=== PATIENT | male | born 1940 | race Caucasian/White ===

== ENCOUNTER → 2024-04-29 | Outpatient (CLI) | payer MEDICARE, OTHER, SELFPAY ==
--- NOTE | 2024-04-29 07:30 | XR_ITS ---
Examination: MRI brain without intravenous contrast. Date and time of exam: April 29, 2024 0758 hours INDICATIONS: Increasing memory loss and confusion over the last 15 years Technique: Multiple axial and sagittal images of the brain obtained. Siemens high-resolution 1.5 Lucy short bore scanners utilized. Sagittal sections, T1-weighted, TR 500, TE 14, are performed. Axial sections proton-density and T2-weighted have been obtained. Inversion recovery axial images, TR 9, 260, TE 111, TI 2500. Diffusion weighted images, axial sections, TR 4800, TE 128, B value 1000 Axial sections, ADC map, TR 4800, TE 128 Findings: Enlargement of the sella turcica is not present. The optic chiasm and infundibular are not remarkable. Prepontine and interpeduncular cisterns are not enlarged. There is no localized enlargement of the medulla or jack. Fourth ventricle and cerebellar tonsils appear normal in position. No subacute area of hemorrhage density is seen. Mass in the cerebellopontine angle region is not evident. Globes symmetrical. Orbital musculature including medial lateral rectus muscles do not exhibit abnormality. Diffusion-weighted images demonstrate no focus of restricted diffusion. Increased white matter signal mild Mass effect upon the ventricular system is not identified. Impression: Negative for acute hemorrhage mass effect or midline shift No acute infarct Mild chronic microvascular white matter change
== END | disposition home or self-care (01) ==
PROVIDERS: Referring Provider Family Medicine; Visit Provider Family Medicine
DX: R90.82 White matter disease, unspecified (principal)
CPT/HCPCS: 70551

== ENCOUNTER 2024-12-26 18:42 | Emergency (ER) | payer MEDICARE, OTHER, SELFPAY ==
[2024-12-26 19:45] VITALS: BP 137/69; PULSE 76; RESP 20; TEMP 37.3; O2SAT 95; BMI 29.5
--- NOTE | 2024-12-26 20:29 | PD.EDWOUND ---
ED Wound/Laceration-RME/HPI General Chief Complaint: Wound/Laceration Stated Complaint: BLEEDING BETWEEN THIGH AND RECTUM Time Seen by Provider: 12/26/24 19:54 Arrival date/time: 12/26/24 18:42 RME / HPI RME / HPI narrative: 84-year-old male presents to the ED with complaint of a sore in the fold between his left thigh and perineum that has been present for at least 1 month. He was seen by his primary care physician last Saturday and did not mention this issue at that time. He indicates that it will fill up with blood and then drain every 3 or so days after he wipes during a bowel movement. He denies any fever or chills, nausea or vomiting, diarrhea or abdominal pain. He denies any significant change in his blood sugars. He denies any difficulty with bowel movements. Related Data Home Medications ?Medication ?Instructions ?Recorded ?Confirmed metoprolol succinate 50 mg 50 mg PO QDAY High Blood Pressure 11/30/14 03/16/21 tablet,extended release 24 hr ##0 (Toprol XL) zolpidem 10 mg tablet (Ambien) 10 mg PO HS PRN INSOMNIA #0 tabs 11/30/14 03/16/21 amitriptyline 100 mg tablet 100 mg PO HS 07/14/20 03/16/21 ibandronate 150 mg tablet 150 mg PO QMONTH 07/14/20 03/16/21 lisinopril 20 mg tablet 20 mg PO QDAY 07/14/20 03/16/21 hydrocodone 10 mg-acetaminophen 1 tab PO TID 03/16/21 03/16/21 325 mg tablet metformin 1,000 mg tablet 1,000 mg PO BID 03/16/21 03/16/21 Previous Rx's ?Medication ?Instructions ?Recorded cephalexin 500 mg capsule 500 mg PO QID #28 caps 03/25/22 cephalexin 250 mg capsule 250 mg PO QID 7 days #28 caps 12/26/24 Allergies Allergy/AdvReac Type Severity Reaction Status Date / Time Penicillins Allergy Mild ITCH Verified 12/26/24 18:47 Review of Systems Review of Systems Systems Reviewed: All systems reviewed, normal except as documented Past Medical History Past Medical History NEUROLOGIC: Positive Head Trauma; Negative Transient Ischemic Attacks (TIA), Dementia, Alzheimer's Disease, Seizures or Migraine CARDIAC: Positive Hypercholesterolemia and Hypertension; Negative Cardiac Disorders or Congestive Heart Failure RESPIRATORY: Positive Pneumonia; Negative Chronic Obstructive Pulmonary Disease (COPD), Asthma or Sleep Apnea GASTROINTESTINAL: Negative Gastrointestinal Disorders or Hemorrhoids GENITOURINARY: Negative Genitourinary Disorders or Renal Disease MUSCULOSKELETAL: Positive Musculoskeletal Disorders and Gout ENT: Positive Cataracts, Deafness and Head Trauma ENDOCRINE: Positive Diabetes Mellitus Type 2; Negative Diabetes Mellitus Type 1 HEMATOLOGIC: Negative Blood Disorders, Anemia or Sickle Cell Disease OTHER HISTORY: Positive Falls, Chicken Pox, Measles and Mumps; Negative Blood Transfusions, Blood Transfusion Reaction, Anesthesia Reactions, MRSA or Cancer Family History FAMILY HISTORY: Positive Family Cardiac Disorders, Family Cancer and Family Surgery; Negative Family Psychiatric Problems or Family Respiratory Disorders Surgical History SURGICAL: Positive Cardiac Surgery, Angiogram and Abdominal Surgery; Negative Ear Surgery, Eye Surgery, Neurologic Surgery, Brain Shunt or Mastectomy Social History SMOKING STATUS: Never smoker SECOND HAND EXPOSURE: No ED Exam Narrative Physical exam: A&O, afebrile and non-toxic appearing 84-year-old male, no acute distress. Lung sounds are clear, RRR with aortic stenosis type murmur noted in all coppola with radiation to his bilateral carotids., Abdomen is non-distended. With outlet manager present, the patient's perineum and upper thigh were examined and reveals a 2 to 3 mm open wound with no purulent drainage. Bloody discharge is noted. No area of induration or fluctuance. No significant tenderness noted to the area. Moves all extremities well. Course Course Course Narrative: Patient was given his first dose of antibiotics while here in the ED. Quality Measures none Orders Category Date Time Status cephALEXin [Keflex] Med 12/26/24 20:28 Once 500 mg PO X1 ONE Vital Signs Vital signs: Vital Signs Temperature 99.1 F 12/26/24 19:45 Pulse Rate 76 12/26/24 19:45 Respiratory Rate 20 12/26/24 19:45 Blood Pressure 137/69 H 12/26/24 19:45 Pulse Oximetry (%) 95 12/26/24 19:45 Oxygen Delivery Method Room Air 12/26/24 19:45 Wound / Laceration MDM Narrative MDM Narrative:: Symptoms, exam and diagnostic studies are consistent with: Possible healing abscess/open and draining wound between the perineum and left proximal thigh. Patient was discharged home in stable condition. Patient/family advised to follow-up with their PCP in 24-48 hours. Encouraged to return to the ED for any new or worsening symptoms. Patient data External records reviewed:: None Clinical information provided by:: patient and spouse Social determinants that could affect healthcare access:: none Patient has the following chronic illnesses:: DM How is presenting disease/condition affected by chronic disease/condition?: uneffected by Evaluation data The following diagnostics were reviewed and interpreted by me:: other (specify) (None) Lab and/or radiology exams considered but not ordered:: N/A Interpretation Summary: N/A Medications / Prescriptions Medications or Prescriptions considered but not ordered:: N/A Medication administrations:: Cephalexin 500 mg p.o. Consultations Consultation(s) initiated? (list below): No Diagnosis Wound Differential Diagnosis: laceration, abscess and abrasion Most likely diagnosis given after review of the tests above:: Healing abscess Admission Indicated Admission indicated?: not indicated Admission Request Was there a request for admission?: No Disposition Plan Disposition Plan: Discharge Discharge Attestation Discharge Attestation: The patient and all family members were given an opportunity to ask questions and understood the discharge instructions. Discharge instructions specifically effects, indications for sooner follow up or return to the emergency department, and the expected course of current diagnosis. Patient condition: Stable Discharge Plan Plan Patient Disposition: HOME (Self Care) Discharge Disposition comment: Stable Prescriptions/Referrals Prescriptions/Med Rec: New cephalexin 250 mg capsule 250 mg PO QID 7 Days Qty: 28 0RF No Action metoprolol succinate [Toprol XL] 50 MG tablet extended release 24 hr 50 mg PO QDAY Qty: 0 zolpidem [Ambien] 10 MG tablet 10 mg PO HS PRN (Reason: INSOMNIA) Qty: 0 lisinopril 20 mg Tablet 20 mg PO QDAY amitriptyline 100 mg Tablet 100 mg PO HS ibandronate 150 mg Tablet 150 mg PO QMONTH hydrocodone-acetaminophen 10-325 mg Tablet 1 tab PO TID metformin 1,000 mg Tablet 1,000 mg PO BID cephalexin 500 mg capsule 500 mg PO QID Qty: 28 0RF Problem List Clinical Impression: Abscess Impression comment: Healing Patient/Caregiver Discharge Instructions Education Materials: ED Abscess Antibiotic ... Additional Instructions: Take the antibiotics as prescribed and complete the course even though you may be feeling better. Wear a maxi pad or a briefs to help contain the bleeding. Avoid placing any TP in the area as this may be breaking a scab loose. Contact your primary care physician regarding the referral to the machine skiver as a murmur was noted on his exam which is suggestive of aortic stenosis. Follow-up with your primary care physician in 24 to 48 hours. Return to the ED for any new or worsening symptoms. Print Language: Azeri Stand Alone Forms: Yuly Award Info., Patient Portal Info Letter PA/NANOTECHNOLOGIST Supervising Physician PA/DAYLIN Supervising Physician: Dr. Mayes
[2024-12-26] MEDS: TRIMETHOPRIM/SULFA 160/800 DS TABLET 1 TAB PO (21:22)
== END 2024-12-26 21:28 | disposition home or self-care (01) ==
LOC: SERX 20:51
PROVIDERS: Emergency Provider Emergency Medicine; PCP Family Medicine
DX: L02.818 Cutaneous abscess of other sites (principal)
CPT/HCPCS: 99283; A9270

== ENCOUNTER 2025-04-13 11:58 | Day surgery (SDC) | payer MEDICARE, OTHER, SELFPAY ==
--- NOTE | 2025-04-12 13:10 | EKG_ITS ---
[facility] Test Date: 2025-04-12 Pat Name: OMAYRA ARROYO Department: Room: - Gender: Male Project Accountant: GAEL : 1940 Requested By: Zafar Wilkes Order Number: [id number] Reading MD: Zafar Wilkes Measurements Intervals [place] Rate: 78 P: 50 DC: 217 QRS: -41 QRSD: 93 T: 4 QT: 366 QTc: 418 Interpretive Statements SINUS RHYTHM WITH FIRST DEGREE AV BLOCK MARKED LEFT AXIS DEVIATION [QRS AXIS < -30] MINIMAL VOLTAGE CRITERIA FOR LVH, CONSIDER NORMAL VARIANT [MEETS CRITERIA IN ONE OF: R(aVL), S(V1), R(V5), R(V5/V6)+S(V1)] Compared to ECG 03/16/2021 12:22:03 First degree AV block now present Left-axis deviation now present /store/S0/[id number]/ecg/[id number].pdf
[2025-04-12 13:54] LABS: Anion Gap 9 (7-16); BUN/Creatinine Ratio 12 Ratio (12-20); Blood Urea Nitrogen 18 mg/dL (9-23); Calcium 9.3 mg/dL (8.3-10.6); Carbon Dioxide 30.5 mMol/L (20.0-31.0); Chloride 107 mMol/L (98-107); Creatinine (Component) 1.5 mg/dL (0.6-1.3); Glucose 105 mg/dL (74-106); INR 1.0 (0.9-1.3); Osmolality,Calculated 292 (275-295); Partial Thromboplastin Time 26.2 Seconds (22.0-36.0); Potassium 4.6 mMol/L (3.4-5.1); Prothrombin Time 10.9 Seconds (9.0-12.2); Sodium 146 mMol/L (136-145); eGFR 46 See Note
[2025-04-12 14:00] LABS: Basophils # (Auto) 0.0 Thou/mm3 (0.0-0.2); Basophils % (Auto) 0 % (0-2.5); Eosinophils # (Auto) 0.1 Thou/mm3 (0.0-0.5); Eosinophils % (Auto) 2 % (0-10); Hematocrit 34.4 % (41.0-53.0); Hemoglobin 11.6 g/dL (13.5-16.0); Immature Granulocytes Auto 0.03 Thou/mm3 (0.00-0.00); Lymphocytes # (Auto) 3.1 Thou/mm3 (1.0-4.8); Lymphocytes % (Auto) 43 % (10-50); Mean Corpuscular HGB Conc 33.7 g/dl (31.0-37.0); Mean Corpuscular Hemoglobin 37.9 pg (25.0-35.0); Mean Corpuscular Volume 112 fL (80-100); Monocytes # (Auto) 0.6 Thou/mm3 (0.0-0.8); Monocytes % (Auto) 9 % (0-12); Neutrophils # (Auto) 3.3 Thou/mm3 (1.8-7.7); Neutrophils % (Auto) 46 % (37-80); Nucleated Red Blood Cell # 0.00 Thou/mm3 (0.00-0.00); Nucleated Red Blood Cell % 0 /100 WBC (0); Platelet Count 110 Thou/mm3 (140-440); RDW Standard Deviation 66.7 fL (35.1-43.9); Red Blood Count 3.06 Miln/mm3 (4.50-5.90); White Blood Count 7.2 Thou/mm3 (3.8-10.6)
[2025-04-12 15:18] LABS: Path Review Blood Smear Sent to Pathologist
[2025-04-12 16:01] VITALS: BMI 27.7
[2025-04-13] VITALS (16 sets, daily range): BP systolic 128–168; BP diastolic 65–88; PULSE 66–80; RESP 12–18; TEMP 36.3–36.7; O2SAT 93–98
[2025-04-13 15:43] LABS: O2 Saturation (Cath Lab) 100 % (91-98)
--- NOTE | 2025-04-13 20:19 | PC.NURSE ---
1608 patient is awake, alert, breathing unlabored, s/p LHC and RHC, TR band present to right wrist, no bleeding or hematoma noted. gauze and tegaderm to right groin, no bleeding or hematoma noted, right groin venous sheath has been removed in clinical laboratory aides teacher [place]. Report received from Naima POTTS, patient to recover for 3 hours. 1637 patient does not want hospital food, will bring food and feed patient. 1653 2ml air removed from TR band since hemostasis time 1553. 1717 3ml air removed from TR band 1735 3ml air removed from TR band 1750 4ml air removed from TR band 1800 3ml air removed from TR band, TR band removed, bleeding/hematoma noted, manual pressure applied [address] with 10ml air, will wait 30 minutes to deflate air 1840 1ml air removed from TR band, no bleeding or hematoma noted 184 pt stated he wants to void, will disconnect patient from vital signs monitors and assist patient to ambulate to bathroom 185 pt ambulated to bathroom and voided, right wrist and right groin remain free of hematoma or bleeding. 1851 patient back in [facility], prefers to sit on side of bed, 3ml air removed from TR band 1902 3ml air removed from TR band 191 3ml air removed from TR band 191 TR band removed, no bleeding or hematoma noted, site covered with tegaderm and coban. 1950 Patient upset he still has IV and removed own IV, manual pressure applied, site covered with gauze and tegaderm. Pt demands to go home, will print discharge instructions and send patient home. no bleeding or hematoma noted to right groin or right wrist. 2004 discharge instructions given, patient and verbalize understanding of discharge instructions, will go park car in front of hospital to discharge patient. 2009 patient awake, alert, breathing unlabored, dressing to right groin and right wrist dry with no bleeding or hematoma. Patient able to tolerate food that family brought with no nausea or vomiting, able to ambulate to bathroom and void, meets discharge criteria, discharge instructions given to patient and , patient discharged home in wheelchair with all belongings.
--- NOTE | 2025-04-13 23:28 | ESOP_ITS ---
Cardiac Cath Procedure Procedure Name Date of procedure: 04/13/25 FIELD CROP GROWER: Zafar Wilkes MD PROCEDURE PERFORMED: 1. Left heart and right heart cardiac catheterization including right, left coronary angiograms and left ventriculogram - CPT 71630 2. Ultrasound-guided access of the right radial artery and right femoral vein - CPT 96867 3. Conscious sedation for 30 minutes - CPT 42536 Procedure Narrative HISTORY AND INDICATIONS: A 84 years old male known case of Aortic stenosis, HTN, DM, CKD, OA of the hips, given patient is planned to have aortic valve replacement was brought in for an elective cardiac catheterization. hence patient is a candidate for left and right coronary angiograms, scheduled for cardiac catheterization today. Discussed with patient risks, benefits and alternatives of performing left with coronary angiogram including the risks of bleeding, heart rate, stroke and with the procedure. Patient understands the risks and is willing to undergo the procedure. Consent provided for the same. H&P updated and consent was signed prior to the procedure DESCRIPTION OF PROCEDURE: The patient was brought to the cardiac catheterization lab and all asceptic precautions were followed. Patient was given 1 Mg of Versed and 50 mcg of fentanyl for moderate conscious sedation. 2 mL of lidocaine was given in the right wrist. The right radial artery was accessed via the ultrasound guidance as well as micropuncture technique. A 6 [place] glide sheath was introduced. Patient already had right antecubital vein access placed. Right antecubital vein access was cleaned appropriately and all aseptic precautions was followed and exchanged into a micropuncture catheter with the help of a micropuncture wire and then introduced and a 7 [place] sheath into the antecubital vein access with the help of a J-wire. A 7 [place] north fork catheter was used to direct catheter into the right atrium with inflated balloon. Serial measurements of right atrium, right ventricle, pulmonary artery and pulmonary capillary wedge were taken severely with normal respiration as well as at end expiration as noted below. We then used a 6 [place] TIG 4 catheter to perform the left and right coronary angiogram as well as a left ventriculogram which showed the following findings. [facility] findings: 1. Left ventricular ejection fraction was severely 20-25% without any regional wall motion abnormalities. LVEDP was normal at 37 mmHg. There was no significant transvalvular aortic gradient. 2. Right dominant circulation left main artery is a large-caliber vessel without any significant stenosis. 3. LAD is a large sized artery with a medium size diagonal and does not show any significant disease. mild 20% disease of ostial diagonal 1 4. LCx is a large sized artery with medium OM1 and small OM2 without any significant disease. 5. RCA is a large artery with nedium RPDA and RPL without any significant disease. RHC findings: Mean right atrial pressure was 5 mmHg. Right ventricular pressure was 32/4 mmHg. Pulmonary artery pressure was 30/15 mmHg with a mean of 22 mmHg. Mean pulmonary capillary wedge pressure was 6 mmHg. TPG was 16 mmHg Pulmonary artery PA saturation was 63.5%.? Arterial saturation was 95% on room air. Cardiac output was 4.0 L/min and cardiac index was normal at 1.9 L/min/m? A radial band was used to achieve the hemostasis of the right radial artery access and manual hemostasis for the right antecubital/femoral vein. Patient will be monitored in the cardiac odd jobs day worker for the next 2 to 3 hours and will be sent to the telemetry floor. Patient recommended to follow-up with me in the office within 7 days after discharge. Complications: None Specimens: None Blood loss: Estimated 5 ml Summary/findings: 1. Non ischemic cardiomyopathy: LHC showed normal coronaries without any angiographically significant obstruction and few luminal irregularities. 2. LVEF was severely low at 25-30%. 3. LVEDP severely elevated at 32 mm hg. No significant transvalvular aortic gradient. 4. Moderately elevated right heart pressures with mean RA of 14 mm hg, mean PA of 44 mmhg and mean PCWP at 32 mm hg which is secondary to the severe left heart dysfunction and possible SIMONE component. Recommendations: 1. Recommend aggressive diuresis for HFrEF given severely elevated LVEDP at 32 mm hg. Lasix 40 mg IV BID for now. 2. 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 Recommend aggressive medical management and aggressive risk factor modification. 2. Patient recommended not to lift more than 5 lbs for the next 7-10 days and follow up with me in my office in 7 days. Zafar Wilkes MD Interventional Cardiology.
== END 2025-04-13 20:10 | disposition home or self-care (01) ==
PROVIDERS: PCP Family Medicine; Referring Provider Internal Medicine Cardiovascular Disease; Visit Provider Internal Medicine Cardiovascular Disease
PROC: (CPT 93460; principal; 2025-04-13 14:00)
DX: I35.0 Nonrheumatic aortic (valve) stenosis (principal); I42.7 Cardiomyopathy due to drug and external agent; E11.22 Type 2 diabetes mellitus with diabetic chronic kidney disease; I13.0 Hypertensive heart and chronic kidney disease with heart failure and stage 1 through stage 4 chronic kidney disease, or unspecified chronic kidney disease; N18.31 Chronic kidney disease, stage 3a; I50.20 Unspecified systolic (congestive) heart failure; Z79.4 Long term (current) use of insulin; Z01.810 Encounter for preprocedural cardiovascular examination; Z79.01 Long term (current) use of anticoagulants; Z79.82 Long term (current) use of aspirin; Z79.899 Other long term (current) drug therapy; Z79.84 Long term (current) use of oral hypoglycemic drugs
CPT/HCPCS: 93460; 36415; 75625; 80048; 82810; 85025; 85610; 85730; 93005; 99152; 99153; A4649; C1726; C1769; C1887; C1894; J0168; J0461; J1643; J2250; J2312; J2371; J3010; J3490; Q9967; C1725; J2305